=== PATIENT | male | born 1955 | race Caucasian/White ===

== ENCOUNTER 2016-11-15 07:12 | Outpatient (CLI) ==
[2016-01-14 13:07] VITALS: BMI 33.7
--- NOTE | 2016-11-15 08:48 | US ---
Exam: Bocanegra-scale and color Doppler ultrasonographic evaluation of the carotid arteries. Comparison: None available. Reason for exam: Left-sided neck pain. FINDINGS: There is a moderate amount of dense and atherosclerotic. These seen in the right proximal internal carotid artery. The right external carotid artery measures 130 cm/sec. The right common carotid artery measures 60 / 20 cm/sec. The right internal carotid artery peak systolic velocity measures 70 cm/sec. The right internal carotid artery/CCA PSV ratio measures 1.1. The right internal carotid artery end-diastolic velocity measures 20 cm/sec. There is normal right antegrade vertebral artery flow. There is a small amount of atheromatous disease seen in the proximal left internal carotid artery The left external carotid artery measures 70 cm/sec. The left common carotid artery measures 70 / 20 cm/sec. The left internal carotid artery peak systolic velocity measures 80 cm/sec. The left internal carotid artery/CCA PSV ratio measures 1.2. The left internal carotid artery end-diastolic velocity measures 10 cm/sec. There is normal antegrade left vertebral artery flow. Impression: 1. Small to moderate amount of atheromatous plaque is seen in the proximal right internal carotid ar nicolás without evidence of significant stenotic disease based on peak systolic velocities. 2. No evidence of significant stenotic disease is seen in the left internal carotid artery.
--- NOTE | 2016-11-15 08:59 | US ---
EXAM: Ultrasound thyroid. HISTORY: Left-sided neck pain. COMPARISON: None available. TECHNIQUE: Bocanegra-scale and color Doppler images. FINDINGS: The right lobe of the thyroid measures 5.2 x 2.6 x 2 cm. There is diffusely heterogeneous echogenicit y with a nodular appearance.. The thyroid isthmus measures 0.4 cm. The left lobe of the thyroid measures 4.8 x 2.4 x 2.2 cm. There is diffusely heterogeneous echogenic ity with a nodular appearance. IMPRESSION: Multinodular goiter.
== END 2016-11-15 07:13 | disposition home or self-care (01) ==
LOC: RAD 07:12
PROVIDERS: ATTEND Internal Medicine
DX: M54.2 Cervicalgia (principal)

== ENCOUNTER 2017-12-25 13:38 | Outpatient (POV) ==
[2016-01-14 13:07] VITALS: BMI 33.7
== END 2017-12-25 17:00 ==
LOC: OUTPT 13:38
PROVIDERS: ATTEND Otolaryngology
DX: H91.90 Unspecified hearing loss, unspecified ear (principal)
CPT/HCPCS: 92557; 92567

== ENCOUNTER 2018-07-01 06:30 | Outpatient (CLI) ==
[2016-01-14 13:07] VITALS: BMI 33.7
--- NOTE | 2018-07-01 08:09 | DI ---
EXAM: CHEST FRONTAL AND LATERAL VIEWS HISTORY: Hypertension, surgical clearance. COMPARISON: 11/02/2015 FINDINGS: Heart size upper limit normal, stable. There is at least mild atherosclerotic disease. T here is no vascular congestion or definite consolidated pneumonia. There is no pleural fluid or pneu mothorax. IMPRESSION: 1. Prominent heart size. 2. Atherosclerosis. 3. No definite consolidated pneumonia.
--- NOTE | 2018-07-03 11:06 | ECHO2D ---
Date of Exam: 07/01/18 Ordering Physician: DR. PANKAJ GIRALDO Room #: OP Reason for Echo: SOB, HTN, PRE SURGICAL CLEARANCE M-Mode Normal Adult Results LV Dimensions Normal Adult Results AoV Opening excursions >1.6 >1.6 LVEDD-base- 3.5-5.8 4.3 Ao root dimensions 2.0-3.7 3.8 LVESD-base- 3.1-4.6 L. Atrium dimensions 1.9-3.8 4.4 Post. Wall thickness 0.8-1.1 1.2 IV septum (thickness) 0.7-1.2 1.3 Post. Wall excursion 0.72-1.3 NORMAL Septal motion NORMAL Systolic motion R. Ventricular cavity 1.5-2.0 NORMAL LVEF 60% 55% Paradoxical septal wall motion NORMAL 2-D : 2-D M Mode Echocardiogram was performed using apical four chamber and left parasternal long and short axis views. Mitral, tricuspid and aortic valves appear to be normal. Contractility of the left ventricle seems to be normal, so is the cavity size. ENLARGED LEFT ATRIAL CAVITY. Aortic root appears to be normal. There is no pericardial effusion. There is no thrombus noted in the left ventricular or left aortic cavity. No mitral valve prolapse noted. M-MODE: MV: NORMAL AV: NORMAL TV: NORMAL PV: CHAMBER SIZE: ENLARGED LEFT ATRIAL CAVITY WALL MOTION: NORMAL PERICARDIUM: NORMAL INTERPRETATION: 1. LEFT VENTRICULAR HYPERTROPHY WITH ENLARGED LEFT ATRIAL CAVITY 2. NORMAL LEFT VENTRICULAR CONTRACTILITY 3. NORMAL VALVES MTDD
== END 2018-07-01 06:31 | disposition home or self-care (01) ==
LOC: CAR 06:30
PROVIDERS: ATTEND Internal Medicine
DX: R06.02 Shortness of breath (principal); I10 Essential (primary) hypertension
CPT/HCPCS: 82803

== ENCOUNTER 2018-07-03 06:25 | Outpatient (CLI) ==
[2016-01-14 13:07] VITALS: BMI 33.7
--- NOTE | 2018-07-03 10:37 | ECHOSTRESS ---
Date of Exam: 07/03/18 Ordering Physician: DR. PANKAJ GIRALDO Reason for Echo: SOB, HTN, STRESS TEST --NO ISCHEMIA M-Mode Normal Adult Results LV Dimensions Normal Adult Results AoV Opening excursions >1.6 LVEDD-base- 3.5-5.8 Ao root dimensions 2.0-3.7 LVESD-base- 3.1-4.6 L. Atrium dimensions 1.9-3.8 Post. Wall thickness 0.8-1.1 IV septum (thickness) 0.7-1.2 Post. Wall excursion 0.72-1.3 Septal motion Systolic motion R. Ventricular cavity 1.5-2.0 LVEF 60% Paradoxical septal wall motion 2-D: NORMAL LEFT VENTRICULAR CONTRACTILITY--RESTING AND POST EXERCISE M-MODE: MV: AV: TV: PV: CHAMBER SIZE: WALL MOTION: NORMAL LEFT VENTRICULAR CONTRACTILITY--RESTING AND POST EXERCISE PERICARDIUM: INTERPRETATION: 1. NORMAL LEFT VENTRICULAR CONTRACTILITY--RESTING AND POST EXERCISE MTDD
--- NOTE | 2018-07-03 10:59 | STRESSECHO ---
Date of Test: 07/03/18 Ordering Physician: DR. PANKAJ GIRALDO Occupation: [employer] Reason for Exam: SOB, HTN, COPD Smoking History: QUIT 18 YRS AGO Height: 75" Weight: 288 LBS Current Medications: LEVOTHYROXINE, SPIRONOLACTONE, DILTIAZEM, ATORVASTATIN, ASA , REQUIP Resting ECG: SINUS RHYTHM/PAC'S Target Heart Rate: 133/157 S-T SEGMENT STAGE MPH/GRADE HEART RATE BPM BLOOD PRESSURE MMHG RHYTHM +/- ELEVATION DEPRESSION SYMPTOMS AT REST 77 BPM 132/100 MMHG SR X NONE 1 1.7/10% 120 BPM 148/98 MMHG SR X NONE 2 2.5/12% 3 3.4/14% 4 4.2/16% 5 5.0/18% Immediately After 134 BPM SR X SHORT OF AIR Minutes Post Exercise 2 112 BPM 180/110 MMHG SR X NONE Minutes Post Exercise 4 90 BPM 158/90 MMHG SR X NONE DURATION OF EXERCISE: 3:12 MAXIMUM HEART RATE REACHED: 134 BPM REASON FOR TERMINATION: SHORT OF AIR 97% OXYGEN SATURATION WITH EXERCISE ON ROOM AIR METS 5.0 INTERPRETATION: 1. NO EVIDENCE OF ISCHEMIC ST-T WAVE CHANGES 2. NO CHEST PAIN OR DISCOMFORT 3. BLOOD PRESSURE RESPONSE: HYPERTENSION AT REST AND WITH EXERCISE 4. PAC'S FEW AT REST/ MORE FREQUENT PAC'S AND PVC'S WITH EXERCISE NORMAL LEFT VENTRICULAR CONTRACTILITY--RESTING AND POST EXERCISE MTDD
== END 2018-07-03 06:26 | disposition home or self-care (01) ==
LOC: CAR 06:25
PROVIDERS: ATTEND Internal Medicine
DX: R06.02 Shortness of breath (principal); I10 Essential (primary) hypertension